=== PATIENT | male | born 1975 | race Caucasian/White ===

== ENCOUNTER 2016-11-25 18:36 | Emergency (ER) | payer OTHER ==
[2016-11-25 19:01] VITALS: BP 122/78; PULSE 63; RESP 16; TEMP 98.1; O2SAT 99
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
== END 2016-11-25 19:53 | disposition left against medical advice (07) ==
LOC: C.ER 18:36
DX: S80.12XA Contusion of left lower leg, initial encounter (principal); W50.0XXA Accidental hit or strike by another person, initial encounter; Z86.718 Personal history of other venous thrombosis and embolism; Z79.01 Long term (current) use of anticoagulants